=== PATIENT | male | born 1970 | race Caucasian/White ===

== ENCOUNTER 2020-09-03 06:51 | Day surgery (SDC) | payer OTHER, SELFPAY ==
[~2020-09-03] VITALS: Ht 170.2 cm; Wt 73.9 kg
[2020-09-03] MEDS ORDERED: diphenhydrAMINE 50 MG/ML VIAL ONE (09:18)
[2020-09-03] MEDS ORDERED: MIDAZOLAM 5 MG/5 ML VIAL ONE (09:19)
[2020-09-03] MEDS ORDERED: fentaNYL citrate 0.05 MG/ML VIAL ONE (09:19)
[2020-09-03] MEDS ORDERED: fentaNYL citrate 0.05 MG/ML VIAL IVP ONE (10:55)
[2020-09-03] MEDS ORDERED: MIDAZOLAM 2 MG/2 ML VIAL IVP ONE (10:55)
== END 2020-09-03 10:46 | disposition home or self-care (01) ==
LOC: MDS 06:51 → MMU 06:52 → MDS 10:46
PROVIDERS: ATTEND Internal Medicine Gastroenterology
DX: Z12.11 Encounter for screening for malignant neoplasm of colon (principal); K21.9 Gastro-esophageal reflux disease without esophagitis; Z20.828 Contact with and (suspected) exposure to other viral communicable diseases
CPT/HCPCS: 43235; 45378; J2250; J3010; U0003; J1200